=== PATIENT | male | born 1950 | race Caucasian/White ===

== ENCOUNTER 2018-10-17 09:54 | Inpatient (IN) | payer MEDICARE ==
[2018-10-17] MEDS ORDERED: Diltiazem IV* 5 MG/ML 5 ML VIAL (for loading dose/IV Push) (25 MG) IV SLOW PU ONE (10:18)
[2018-10-17] MEDS ORDERED: Furosemide IV* 10 MG/ML 10 ML VIAL (100 MG) IV ONE (10:18)
--- NOTE | 2018-10-17 10:20 | ED ---
Shortness of Breath - HPI Summary HPI Summary: A 67 y/o male presents to [facility] with a chief complaint of SOB since August 2018. He rates his pain as a constant /10. He claims that around 10/02/18 he started to have leg edema with his SOB. He denies a Hx of a-fib, HTN, DM, but also states that he has not seen a PCP in "a long time" since he thought that he was healthy. Being reclined and exertion aggravates his pain. FHx: mother CHF , father of [place] at 53. - History of Current Complaint Chief Complaint: EDRespiratoryDistress Time Seen by Provider: 10/17/18 10:01 Hx Obtained From: Patient Onset/Duration: Sudden Onset, Lasting Weeks, Still Present Current Severity: Mild Dyspnea At: Rest Aggrevating Factors: Other - being reclined, exertion Alleviating Factors: Nothing Associated Signs & Symptoms: Calf Pain/Swelling, Edema - Allergy/Home Medications Allergies/Adverse Reactions: Allergies Allergy/AdvReac Type Severity Reaction Status Date / Time melon Allergy Hives Verified 10/17/18 10:39 peach Allergy Hives Verified 10/17/18 10:39 Home Medications: Home Medications NK [No Home Medications Reported] 10/17/18 [History Confirmed 10/17/18] PMH/Surg Hx/FS Hx/Imm Hx Endocrine/Hematology History: Denies: Hx Diabetes Cardiovascular History: Denies: Hx Atrial Fibrillation, Hx Hypertension EENT History: Denies: Hx Deafness - Family History Known Family History: Positive: Cardiac Disease - mother CHF, father OK at 53 y/ o Negative: Hypertension, Diabetes - Social History Lives: With Family Alcohol Use: Daily Hx Substance Use: No Hx Tobacco Use: Yes Smoking Status (MU): Former Smoker Type: Cigarettes Review of Systems Negative: Fever Positive: Shortness Of Breath Positive: Edema All Other Systems Reviewed And Are Negative: Yes Physical Exam - Summary Physical Exam Summary: Appearance: Well appearing, no pain distress Skin: warm, dry, reflects adequate perfusion Head/face: normal Eyes: EOMI, LAZARUS ENT: mucous membranes moist Neck: supple, non-tender Respiratory: Breath sounds diminished right greater than left. Cardiovascular: Tachycardic, pulses symmetrical Abdomen: lower body swelling into the abdomen, non-tender, soft Bowel Sounds: present Musculoskeletal: 4+ lower extremity edema with swelling into the abdomen, no tenderness, strength/ROM intact Neuro: normal, sensory motor intact, A&Ox3 Triage Information Reviewed: Yes Vital Signs Reviewed: Yes Diagnostics - Laboratory Result Diagrams: 10/17/18 10:30 10/17/18 11:44 Lab Statement: Any lab studies that have been ordered have been reviewed, and results considered in the medical decision making process. - Radiology CXR Radiology Interpretation Completed By: Radiologist Summary of Radiographic Findings: The constellation of findings favors mild pulmonary vascular congestion and associated. moderate RIGHT pleural effusion with basilar atelectasis. A RIGHT basilar pneumonia is not. excluded. Correlate with clinical assessment. ED provider has reviewed this imaging report. - EKG 10:04 Cardiac Rate: Other Rate - Wide complex tachycardia at 138 bpm EKG Rhythm: Sinus Tachycardia ST Segment: Normal, Non-Specific Summary of EKG Findings: wide complex tacycardia at 138 bpm, sinus tacycardia, LBBB vs Ventricular tachycardia, Nonspecific ST Re-Evaluation - Re-Evaluation First Eval Re-Evaluation Time: 10:28 Change: Improved Comment: Patient is improving Second Eval Re-Evaluation Time: 11:26 Change: Improved Comment: Patient is improving. Course/Dx - Course Course Of Treatment: Nurse's notes reviewed. Patient presents with lower extremity edema extending up into the abdomen and worsening shortness of breath over the last 2 months. He has pleural effusion seen on bedside ultrasound and is hyperdynamic. EKG shows wide complex tachycardia that's either sinus tach or could be DVT. He is very hypertense. His heart rate and dyspnea improved significantly with IV diltiazem bolus and drip. Discussed with cardiology. Patient will be admitted to the hospitalist service. - Diagnoses Differential Diagnosis/HQI/PQRI: Positive: CHF, COPD Exacerbation, Pneumothorax , Pulmonary Embolism, Pulmonary Edema, Other - Myocarditis Provider Diagnoses: Acute CHF, Tachycardia, Left bundle branch block - Physician Notifications Discussed Care of Patient With: Vidal Jaeger Time Discussed With Above Provider: 11:30 Instructed by Provider To: Admit As Inpatient - Critical Care Time Critical Care Time: 30-74 min - 30 minutes CCT is EXCLUSIVE of separately billable procedures. Discharge - Sign-Out/Discharge Documenting (check all that apply): Patient Departure - Admit - Discharge Plan Condition: Fair Disposition: ADMITTED TO [facility] Referrals: No Primary Care Phys,NOPCP [Primary Care Provider] - - Billing Disposition and Condition Condition: FAIR Disposition: Admitted to [facility] - Attestation Statements Document Initiated by Usman: Yes Documenting Scribe: Alf Zarate Provider For Whom Usman is Documenting (Include Credential): Philip Osorio MD Scribe Attestation: I, Alf Zarate, scribed for Philip Osorio MD on 10/17/18 at 1307. Scribe Documentation Reviewed: Yes Provider Attestation: The documentation as recorded by the Alf eller accurately reflects the service I personally performed and the decisions made by me, Philip Osorio MD Status of Scribe Document: Viewed Consult Consult: At 11:[address] Simons, cardio, who is now on the case.
[2018-10-17 10:48] LABS: INR 1.22 (0.77-1.02)
[2018-10-17 10:51] LABS: Hematocrit 55 % (42-52); Hemoglobin 18.3 g/dl (14.0-18.0); Mean Corpuscular HGB Conc 33 g/dl (31-36); Mean Corpuscular Hemoglobin 32 pg (27-31); Mean Corpuscular Volume 95 fL (80-94); Red Blood Count 5.78 10^6/ul (4.00-5.40); Red Cell Distribution Width 14 % (10.5-15); White Blood Count 11.8 10^3/ul (3.5-10.8)
[2018-10-17 11:13] LABS: ABS Basophils 0 10^3/ul (0-0.2); ABS Eosinophils 0.1 10^3/ul (0-0.6); ABS Lymphocytes 1.3 10^3/ul (1.0-4.8); ABS Monocytes 0.8 10^3/ul (0-0.8); ABS Neutrophils 9.6 10^3/ul (1.5-7.7); ABS Nucleated RBC 0 10^3/ul; Large Platelets Present; Nucleated Red Blood Cells % 0.1; Platelet Count 306 10^3/ul (150-450)
[2018-10-17 11:14] LABS: ALT 19 U/L (7-52); Albumin 4.1 g/dL (3.2-5.2); Albumin/Globulin Ratio 1.3 (1-3); Alkaline Phosphatase 71 U/L (34-104); BUN/Creatinine Ratio 19.7 (8-20); Blood Urea Nitrogen 24 mg/dL (6-24); CO2 Carbon Dioxide 22 mmol/L (22-32); Calcium 9.2 mg/dL (8.6-10.3); Chloride 103 mmol/L (101-111); EGFR Non-African American 59.2 (>60); Globulin 3.1 g/dL (2-4); Glucose 145 mg/dL (70-100); Sodium 139 mmol/L (135-145); Total Protein 7.2 g/dL (6.4-8.9)
[2018-10-17] MEDS ORDERED: Diltiazem IV VIAL* 125 MG in NS 0.9% 100 ML* 100 ML IVPB ONE ×2 (11:26→18:15)
[2018-10-17] MEDS ORDERED: NS 0.9% 100 ML* 0 ML ONE (11:32)
[2018-10-17 11:36] LABS: Anion Gap 14 mmol/L (2-11)
[2018-10-17 11:49] LABS: TSH (Thyroid Stimulating Horm) 3.36 mcIU/mL (0.34-5.60)
[2018-10-17] MEDS ORDERED: Acetaminophen TAB* 325 MG PO PRN (12:57)
[2018-10-17] MEDS ORDERED: Heparin VIAL(*) 5000 UNITS/ML VIAL (FIVE THOUSAND) SUBCUT SCH (14:00)
[2018-10-17] MEDS: Nitroglycerin 2% OINT* 1 GM PAK TOPICAL SCH (14:19)
[2018-10-17] MEDS ORDERED: Heparin VIAL(*) 5000 UNITS/ML VIAL (FIVE THOUSAND) IV SCH (18:00)
[2018-10-17] MEDS ORDERED: Nitro Patch/OINT Remove TOPICAL SCH (18:00)
[2018-10-17] MEDS ORDERED: Heparin DRIP 25,000 UNITS(*) 25,000 UNITS/500 ML BAG IV SCH (18:00)
[2018-10-17 18:16] LABS: Indirect Bilirubin 1.2 mg/dL (0.3-1.0); Total Bilirubin 1.7 mg/dL (0.2-1.0)
[2018-10-17] MEDS: Furosemide IV* 10 MG/ML VIAL (40 MG) IV SCH (19:48)
[2018-10-17] MEDS: Metoprolol Tartrate TAB* 25 MG PO SCH (20:34)
--- NOTE | 2018-10-17 21:52 | HP ---
HISTORY AND PHYSICAL: DATE OF ADMISSION: 10/17/18 PROVIDER: Lili Jay NP PRIMARY CARE PROVIDER: None. ATTENDING PHYSICIAN WHILE IN THE HOSPITAL: Dr. Vidal Jaeger * (dictated by Lili Jay NP). CHIEF COMPLAINT: Shortness of breath. HISTORY OF PRESENT ILLNESS: Mr. Molina is a 67-year-old male with no prior medical history other than approximately a 10-year history of alcohol abuse, where he reports that he has drank approximately a 6-pack a day 5 to 6 days a week for approximately 10 years, quitting in July of 2018, does report he has not had any alcohol since. The patient reports that around he developed what he thought was a chest cold with a dry nonproductive cough. He states he never brought up any secretions, but had the cough and continued to have the cough. He does report in July he was able to stack 4 cords of wood without any difficulty, never developed any chest pain or shortness of breath. Since the development of the cough, he has become more progressively short of breath. He states shortly before he started noticing increased swelling to bilateral lower extremities that progressively has gotten worse and his shortness of breath became progressively worse causing nocturnal dyspnea and orthopnea. The patient reports that he was able to sleep by on his sides on 1 pillow, but since has been sitting upright at night to sleep due to his increased shortness of breath. The patient reports that over the past 2 days the shortness of breath has become significantly worse, so he presented to the emergency room for further evaluation. The patient also reports that the bilateral lower extremity edema has progressively become worse and now he feels bloated and swelling up to his abdomen. He has had decreased appetite due to the swelling and early satiety. While in the emergency room, the patient had routine lab work drawn. He was found to have lactic acidosis with a lactic acid level of 3.5. He had a troponin, initial troponin was 0.05 and a BNP of 1037. WBCs were 11.8, H and H were 18.3 and 55. The chest x-ray was consistent with pulmonary vascular congestion with a right pleural effusion. Given these symptoms, we were asked to see and evaluate the patient for admission. PAST MEDICAL HISTORY: None. PAST SURGICAL HISTORY: None. HOME MEDICATIONS: None. ALLERGIES: MELON and PEACH. FAMILY HISTORY: Father at the age of 53 from an ND. Mother with CHF in her 70s. No diabetes. Mother had a history of uterine cancer. SOCIAL HISTORY: The patient reports that he quit smoking approximately 35 years ago. He currently does not use alcohol, but does report a remote history of approximately 10 years of alcohol abuse where he drank 6-pack a day 5 to 6 days a week for approximately 10 years, quitting in July of 2018. He denies any illicit drug use. He is retired. He is . He lives with his . Surrogate decision maker in the event he is unable to make his own decisions is his . He is a full code. REVIEW OF SYSTEMS: He denies any fever. He does report decreased appetite x3 days. He denies any chest pain with exertion. He does report edema to bilateral lower extremities from his waist down to his feet progressively worsening since before [place]. He does report cough. He denies any hemoptysis. He does report that he feels short of breath all the time and that he has had increased weakness and fatigue. He denies any nausea, vomiting , or diarrhea. Denies any abdominal pain, hematuria or dysuria. Denies any focal weakness or sensory loss. Denies any visual complaints. Denies any dysphagia, arthralgias, myalgias, rashes, lesions, psychosis, or anxiety. PHYSICAL EXAMINATION GENERAL: At this time, Mr. Molina is a 67-year-old male. He appears mildly short of breath, resting on the stretcher in the emergency room. VITAL SIGNS: Blood pressure 143/105; heart rate is 88, irregular on the monitor ; respirations are 20 to 22; O2 saturation 95% on room air; temperature was 96.9 to 98.3. HEENT: Head is atraumatic and normocephalic. Eyes: EOMs are intact. Sclerae are anicteric and not pale. Oral mucosa appears to be moist. NECK: Supple. He does have positive JVD. LUNGS: Lungs are clear, significantly diminished on the right side. No wheezes , rales, or rhonchi. CARDIAC: S1, S2. Irregular rate and rhythm. ABDOMEN: Rounded, firm. Bowel sounds are present x4. EXTREMITIES: Pedal pules are +2 bilaterally. He has +2 to +3 pitting edema to his lower extremities with +1 pitting edema noted to his thighs. Scrotum is swollen and swelling noted to his lower abdomen. He is able to move all extremities with 5/5 strength. NEUROLOGIC: He is awake, alert, oriented x3. Handgrips are equal. Tongue is midline. Speech is clear. No gross focal deficits. SKIN: Intact. DIAGNOSTIC STUDIES AND LABORATORY DATA: WBCs are 11.8, RBCs 5.79, hemoglobin 18.3, hematocrit 55, platelet count is 306. INR was 1.22. Sodium 139, potassium 4.4, chloride 103, carbon dioxide was 22, anion gap 14, BUN was 24, creatinine 1.22, glucose was 145, lactic acid 3.5, calcium 9.2, magnesium 2.0. T-bili was 1.70, GGT 62, ASTs were 24, ALTs were 19, alkaline phosphatase was 71. Troponin was 0.05 and repeat was 0.05. BNP was 1037. TSH was 3.36. He had a chest x-ray, radiologist's impression: Constellation findings are mild pulmonary vascular congestion associated with moderate right pleural effusion and bibasilar atelectasis, a right basilar pneumonia is not excluded, correlate clinically. He had an electrocardiogram, which showed initially tachycardia at a rate of 138. His rhythm was slowed down. He did present with atrial fibrillation when his rate was slowed to the 80s. ASSESSMENT AND PLAN: Mr. Molina is a 67-year-old male with no significant past medical history other than a remote history of daily alcohol use of 6 beers daily 5 to 6 days a week x10 years, which he quit drinking on 08/08/18 and has not had any alcohol since, who presented to the emergency room with progressively worsening shortness of breath and swelling to the lower extremities and lower abdomen. He will be admitted inpatient for: 1. Acute diastolic congestive heart failure. At this point, we will start Lasix 40 mg IV q.[address] him on telemetry. We will monitor him on telemetry. I will continue to trend his troponins as they are mildly elevated. He is currently on a Cardizem drip. We will continue the Cardizem drip for rate control. I will get a transthoracic echocardiogram. I have also consulted Cardiology and spoke to Dr. Campos in regards to this patient. 2. Tachycardia. The patient's initial rhythm was thought to be sinus tachycardia in the 130s. The rate was slowed down. He was found to be having atrial fibrillation. Due to the atrial fibrillation, he will be started on anticoagulation. I will start him on a heparin drip per protocol for new onset atrial fibrillation. He will also to be continued on the Cardizem drip and titrate if heart rate allows. He will be started on metoprolol 25 mg twice daily as per Cardiology's recommendations. He will also be scheduled for a FEILCE and cardioversion possibly tomorrow or Monday. If unable to do a FELICE tomorrow, the patient should continue to have a transthoracic echocardiogram to evaluate ejection fraction. 3. Lactic acidosis. His lactic acid is elevated on admission without any clear source of infection. We will repeat the lactic acid. 4. Elevated troponin. I suspect that the patient has an elevated troponin level related to demand ischemia from the tachycardia and congestive heart failure. We will continue to trend his troponins. He will be seen and evaluated by Cardiology. 5. FEN. He can have a heart-healthy, no caffeine diet. He will be n.p.o. after midnight for procedure in the a.m. 6. DVT prophylaxis. He will be placed on heparin drip. 7. Code status: He is a full code. TIME SPENT: Time spent on this admission was 60 minutes, greater than half of that time was spent with the patient obtaining my history and physical, the other half of the time was spent going over the plan of care and implementing my plan of care. I discussed this with my attending, Dr. Jaeger, and he is in agreement with my plan. LILI JAY, ASSISTANT SOFTBALL COACH [id number]/CPS #: [id number] NICHOLAS
[2018-10-17] MEDS ORDERED: NS 0.9% 100 ML* 100 ML ONE (21:56)
[2018-10-17] MEDS ORDERED: Diltiazem IV VIAL* 125 MG in NS 0.9% 100 ML* 100 ML IV SCH (23:00)
--- NOTE | 2018-10-18 02:29 | CONS ---
CC: Hospitalist Service... CARDIOLOGY CONSULTATION: DATE OF CONSULT: 10/17/18 REASON FOR CONSULTATION: Congestive heart failure. CHIEF COMPLAINT: Shortness of breath as well as abdominal and leg swelling. HISTORY OF PRESENT ILLNESS: Mr. Molina is a 67-year-old gentleman who has been previously healthy and has not followed with doctors in decades. The patient states he used to drink quite regularly. On 2017, he just did not have the taste for a beer when a friend offered him one and he has not had one since. The patient developed viral cold-like symptoms after Thanksgiving at end of August. He noted by the end of September that he was starting to get a swollen abdomen, and following this, swollen legs and exertional dyspnea. The patient presented to the emergency department for the above symptoms and was found to be in regular tachycardia with a left bundle-branch block. The patient denies any awareness of palpitations or racing of the heart. He has had orthopnea. PAST MEDICAL HISTORY: None. OUTPATIENT MEDICATIONS: None. ALLERGIES: Foods (melon and peach). No known medication allergies. SOCIAL HISTORY: The patient did in the past drink quite a few beers a day (6 pack),but stopped on 2017. He is a retired hardware engineering manager, . No active smoking and no history of recreational drug use. FAMILY HISTORY: Significant that his father of a heart attack at age 53, and his mother developed congestive heart failure. REVIEW OF SYSTEMS: See history of present illness. The last taste for alcohol was in July, viral symptoms in August, and progressive abdominal girth, lower extremity edema, and shortness of breath in September progressing to now. He denies chest pain of any sort. He does admit to orthopnea. He is vague about decline in exercise. He states in July he was very physically active, and over the holidays, he had a lot of traveling and family obligations. He did not really notice a decline. No recent fevers, chills, sweats, change in bowel or bladder habits. PHYSICAL EXAMINATION: On exam, the patient is 5 feet 11 inches, weighs 225 pounds with a BMI of 31. Vitals: On arrival to the emergency department, blood pressure 179/135 with a pulse of 140. Current vitals (on diltiazem drip and following diuresis), blood pressure 140/86, pulse 106, oxygen 99%, respiratory rate 18. General Appearance: Somewhat older gentleman, lying about 60 degrees with marked edema of the legs. Psychologically, pleasant and cooperative. Neurologically, awake, alert, oriented to person, place, and time. Cranial nerves II through XII intact. Grossly normal sensory and motor function based on bed exam. Skin: Warm, dry, without appreciable cyanosis of the lips or nail beds. HEENT: Mucous membranes moderately moist. Neck: Without appreciable increase in JVP. Strong carotid pulses. Free of bruits. Breath sounds were diminished in the bases. Coronary: S1, S2. Regular. Tachycardic without murmurs. Abdomen: Rotund. Did not appreciate a fluid level. Lower extremities show 3 to 4+ pitting edema up to the upper thigh extending to the abdomen. DIAGNOSTIC STUDIES AND LABORATORY DATA: Studies: A 12-lead ECG in the emergency room at 10 a.m. showed regular tachycardia, 138 beats a minute with a left bundle- branch block. Repeat EKG on rate lowering agents at 1437 confirms atrial flutter with varying rates, left bundle-branch block. Labs: White count 11.8, hemoglobin 18.3, hematocrit 55, platelets 306. INR 1.22. PTT 30.6. Sodium 139, potassium 4.4, chloride 103, bicarb 22, BUN 24, creatinine 1.22, glucose 145. Lactic acid 3.5, bili 1.7. AST 24, ALT 19, alk phos 71. Troponin #1, 0.05; troponin #2, 0.05; troponin #3, 0.07. BNP 1037. TSH 3.36. Chest x-ray shows mild pulmonary vascular congestion and right pleural effusion , cannot rule out bilateral pneumonias in the bases. Liver ultrasound showed small gallbladder, complex hepatic cyst, small amount of ascites, and bilateral pleural effusions. ASSESSMENT/PLAN: In summary, Mr. Molina is a 67-year-old gentleman presenting with atrial flutter of uncertain duration, probably for weeks with congestive heart failure and fluid overload in the abdomen, lower extremities, and lungs including pleural effusions. The atrial flutter is very likely the etiology of his fluid overload. This combined with a left bundle-branch block could have lead to depressed ejection fraction, but we do not yet have an echo to confirm this. Today, I have recommended initiation of heparin drip to decrease the risk of stroke. I agree with diuresis, and once we feel he is diuresed enough, he needs to undergo transesophageal echo guided cardioversion. Once we determine what his ejection fraction is, he may need an medications added for cardiomyopathy which would include beta-napoleon, ACEI/ARB, and diuretics. In the future may benefit from spironolactone in addition to loop diuretics. The patient had lots of good questions about prognosis and what to expect. I made him aware that long-term he could be a good candidate for flutter ablation but that acutely we needed to protect him from stroke, plan on controlling the rate as part of the mechanism to improve him clinically. Ultimately, we would try to cardiovert him once we felt it was safe and that he would likely need an antiarrhythmic added, he is understanding. Other considerations would be his elevated hemoglobin, this may be related to his drinking history. For his family history of early atherosclerotic heart disease and borderline troponins, at some point will need a stress test but if he has severe cardiomyopathy, he may warrant more invasive evaluation, await testing ordered before determining how to pursue ischemic workup. [id number]/[facility] #: [id number] NICHOLAS
[2018-10-18] MEDS: Nitroglycerin 2% OINT* 1 GM PAK TOPICAL SCH (05:40)
[2018-10-18] MEDS ORDERED: Nitroglycerin 2% OINT* 1 GM PAK TOPICAL SCH (06:00)
[2018-10-18 06:56] LABS: ABS Basophils 0 10^3/ul (0-0.2); ABS Eosinophils 0.2 10^3/ul (0-0.6); ABS Lymphocytes 1.2 10^3/ul (1.0-4.8); ABS Monocytes 0.8 10^3/ul (0-0.8); ABS Neutrophils 6.4 10^3/ul (1.5-7.7); ABS Nucleated RBC 0 10^3/ul; Eosinophil % 1.8 %; Hematocrit 49 % (42-52); Hemoglobin 16.2 g/dl (14.0-18.0); Mean Corpuscular HGB Conc 33 g/dl (31-36); Mean Corpuscular Hemoglobin 31 pg (27-31); Mean Corpuscular Volume 95 fL (80-94); Mean Platelet Volume 10.8 fL (7.4-10.4); Nucleated Red Blood Cells % 0.2; Platelet Count 197 10^3/ul (150-450); Red Blood Count 5.23 10^6/ul (4.00-5.40); Red Cell Distribution Width 14 % (10.5-15); White Blood Count 8.5 10^3/ul (3.5-10.8)
[2018-10-18 07:16] LABS: BUN/Creatinine Ratio 19.6 (8-20); Calcium 9.1 mg/dL (8.6-10.3); EGFR Non-African American 72.8 (>60); HDL Cholesterol 30.3 mg/dL; Potassium 3.5 mmol/L (3.5-5.0)
[2018-10-18] MEDS: Furosemide IV* 10 MG/ML VIAL (40 MG) IV SCH ×2 (08:13→21:05)
[2018-10-18] MEDS: Metoprolol Tartrate TAB* 25 MG PO SCH (08:13)
[2018-10-18] MEDS ORDERED: Potassium Chlor TAB* 10 MEQ TAB.ER PO ONE (08:32)
[2018-10-18] MEDS: Apixaban* 5 MG TAB PO SCH ×2 (09:09→21:06)
[2018-10-18] MEDS ORDERED: Midazolam* 1 MG/ML 10 ML VIAL (10 MG) ONE (09:41)
[2018-10-18] MEDS ORDERED: fentaNYL* 50 MCG/ML 2 ML VIAL (100 MCG VIAL) ONE (09:41)
[2018-10-18] MEDS ORDERED: Flumazenil* 0.1 MG/ML 5 ML MDV ONE (09:41)
[2018-10-18] MEDS ORDERED: Naloxone* 0.4 MG/ML 1 ML VIAL ONE (09:41)
[2018-10-18] MEDS ORDERED: Lidocaine 2% VISCOUS* 15 ML UDC ONE (09:41)
--- NOTE | 2018-10-18 11:02 | PN ---
Subjective Date of Service: 10/18/18 Interval History: f/u ChF, atrial flutter remains with dyspnea and marked volume overload Medications Active Medications: Acetaminophen (Tylenol Tab*) 650 mg PO Q4H PRN PRN Reason: FEVER/PAIN Apixaban (Eliquis*) 5 mg PO BID [facility] Last Admin: 10/18/18 09:09 Dose: 5 mg Carvedilol (Coreg Tab*) 6.25 mg PO BID [facility] Furosemide (Lasix Iv*) 40 mg IV Q12H [facility] Last Admin: 10/18/18 08:13 Dose: 40 mg Objective Vital Signs: Temp Pulse Resp BP Pulse Ox 97.8 F 92 17 150/86 97 10/18/18 07:28 10/18/18 07:28 10/18/18 08:00 10/18/18 07:51 10/18/18 07:28 Oxygen Devices in Use Now: Nasal Cannula Appearance: nad, pleasant Neck: Trachea Midline, - - + jvd Respiratory: Symmetrical Chest Expansion and Respiratory Effort, - - decreased BS right base Cardiovascular: - - RRR, no significant murmur Abdominal: - - distended, soft Extremities: - - 3+ edema Neurological: Alert and Oriented x 3 Laboratory Results: 10/18/18 06:45 10/18/18 06:45 INR (Anticoag Therapy) 1.22 (0.77-1.02) H 10/17/18 10:30 APTT 146.8 seconds (26.0-36.3) H* 10/18/18 02:15 Total Bilirubin 1.70 mg/dL (0.2-1.0) H 10/17/18 16:19 Direct Bilirubin 0.50 mg/dL (0.03-0.18) H 10/17/18 16:19 Indirect Bilirubin 1.2 mg/dL (0.3-1.0) H 10/17/18 16:19 AST 24 U/L (13-39) 10/17/18 11:44 ALT 19 U/L (7-52) 10/17/18 10:30 Alkaline Phosphatase 71 U/L (34-104) 10/17/18 10:30 B-Natriuretic Peptide 1037 pg/mL (<=100) H 10/17/18 10:30 Total Protein 7.2 g/dL (6.4-8.9) 10/17/18 10:30 Albumin 4.1 g/dL (3.2-5.2) 10/17/18 10:30 Globulin 3.1 g/dL (2-4) 10/17/18 10:30 Albumin/Globulin Ratio 1.3 (1-3) 10/17/18 10:30 Triglycerides 64 mg/dL 10/18/18 06:45 Cholesterol 178 mg/dL 10/18/18 06:45 LDL Cholesterol 135 mg/dL 10/18/18 06:45 HDL Cholesterol 30.3 mg/dL 10/18/18 06:45 TSH 3.36 mcIU/mL (0.34-5.60) 10/17/18 10:30 10/17/18 10/17/18 10/17/18 10:30 12:48 16:19 Troponin I 0.05 H* 0.05 H* 0.07 H* 10/18/18 06:45 Troponin I 0.08 H* [id number] 6.4 Diagnostic Imaging: FELICE 10/18/2018 LVEF 30% No LA/COURTNEY thrombus Moderate TR Mild aortic plaque Assessment/Plan Mr. Molina is a 67 year old man admitted with acute systolic HF LVEF 30% in the setting of a LBBB and 2:1 rapid atrial flutter of uncertain duration. s/p FELICE/cardioversion 10/27/2018 remains markedly volume overloaded - Continue IV diuresis - Stop metoprolol and start coreg 6.25 mg po bid (ordered) - Start enalapril 2.5 mg po bid (ordered) - Heparin gtt stopped and eliquis 2.5 mg po bid (ordered) - Check daily CMP and Mg (ordered), suspect LFT's will normalize with diuresis and mosque of sinus rhythm. Replace lytes as needed (40 meq K given this AM, will order another 20 meq for later this evening) - Continue telemetry monitoring - Will follow, further recommendations pending clinical course Thank you for allowing me to participate in the cardiovascular care of this patient. Please do not hesitate to contact me with questions or concerns.
--- NOTE | 2018-10-18 14:05 | PN ---
Subjective Date of Service: 10/18/18 Interval History: Pt is seen after cardioversion, feels much better. Leg edema is somewhat improved, but breathing is back to baseline Objective Active Medications: Acetaminophen (Tylenol Tab*) 650 mg PO Q4H PRN PRN Reason: FEVER/PAIN Apixaban (Eliquis*) 5 mg PO BID [facility] Last Admin: 10/18/18 09:09 Dose: 5 mg Carvedilol (Coreg Tab*) 6.25 mg PO BID [facility] Enalapril Maleate (Vasotec Tab*) 2.5 mg PO BID [facility] Furosemide (Lasix Iv*) 40 mg IV Q12H [facility] Last Admin: 10/18/18 08:13 Dose: 40 mg Potassium Chloride (Klor Con Er Tab*) 20 meq PO ONCE ONE Stop: 10/18/18 21:01 Vital Signs - 8 hr 10/18/18 10/18/18 10/18/18 06:51 07:28 07:51 Temperature 97.8 F Pulse Rate 92 Respiratory 16 Rate Blood Pressure 149/98 150/86 (mmHg) O2 Sat by Pulse 97 Oximetry 10/18/18 10/18/18 10/18/18 08:00 08:51 09:22 Temperature Pulse Rate 101 Respiratory 17 20 Rate Blood Pressure 154/104 146/111 (mmHg) O2 Sat by Pulse 94 Oximetry 10/18/18 10/18/18 10/18/18 09:27 09:32 09:37 Temperature Pulse Rate 93 92 94 Respiratory 20 19 21 Rate Blood Pressure 152/127 167/123 153/120 (mmHg) O2 Sat by Pulse 96 97 96 Oximetry 10/18/18 10/18/18 10/18/18 10:00 10:09 10:16 Temperature Pulse Rate 91 90 93 Respiratory 21 Rate Blood Pressure 168/119 147/120 (mmHg) O2 Sat by Pulse 94 99 99 Oximetry 10/18/18 10/18/18 10/18/18 10:19 10:23 10:30 Temperature Pulse Rate 95 95 70 Respiratory Rate Blood Pressure 129/103 140/90 129/67 (mmHg) O2 Sat by Pulse 99 97 95 Oximetry 10/18/18 10/18/18 10/18/18 10:34 10:38 10:43 Temperature Pulse Rate 65 67 68 Respiratory Rate Blood Pressure 97/69 109/71 119/69 (mmHg) O2 Sat by Pulse 94 95 93 Oximetry 10/18/18 10/18/18 10/18/18 10:53 10:58 11:00 Temperature Pulse Rate 61 68 66 Respiratory Rate Blood Pressure 136/95 110/94 (mmHg) O2 Sat by Pulse 91 94 93 Oximetry 10/18/18 10/18/18 10/18/18 11:03 11:08 11:13 Temperature Pulse Rate 51 66 62 Respiratory Rate Blood Pressure 129/87 123/95 122/78 (mmHg) O2 Sat by Pulse 96 97 97 Oximetry 10/18/18 10/18/18 10/18/18 11:18 11:23 11:52 Temperature Pulse Rate 59 65 Respiratory Rate Blood Pressure 118/84 129/91 142/98 (mmHg) O2 Sat by Pulse 97 97 Oximetry 10/18/18 10/18/18 10/18/18 11:56 12:05 12:51 Temperature 97.7 F Pulse Rate 78 Respiratory 15 Rate Blood Pressure 133/95 136/98 137/106 (mmHg) O2 Sat by Pulse 99 Oximetry 10/18/18 13:27 Temperature 98.1 F Pulse Rate 94 Respiratory 16 Rate Blood Pressure (mmHg) O2 Sat by Pulse 97 Oximetry Oxygen Devices in Use Now: None Appearance: 67 yo M in nAD, aAOx3 Eyes: No Scleral Icterus, PERRLA Ears/Nose/Mouth/Throat: NL Teeth, Lips, Gums, Mucous Membranes Moist Neck: NL Appearance and Movements; NL JVP, Trachea Midline Respiratory: Symmetrical Chest Expansion and Respiratory Effort, Clear to Auscultation Cardiovascular: NL Sounds; No Murmurs; No JVD, RRR Abdominal: NL Sounds; No Tenderness; No Distention Lymphatic: No Cervical Adenopathy Extremities: No Clubbing, Cyanosis, - - edema b/l LE's +1 pitting up to the thighs b/l Skin: No Rash or Ulcers, No Nodules or Sclerosis Neurological: Alert and Oriented x 3, NL Muscle Strength and Tone Result Diagrams: 10/18/18 06:45 10/18/18 06:45 Assess/Plan/Problems-Billing Assessment: 67 yo m with no significant PMhx presents with A. flutter with RVR and CHF. - Patient Problems (1) Atrial flutter Comment: s/p FELICE cardioversion by Dr. Harris. Now on coreg, lisinopril, eliquis (2) Acute clinical systolic heart failure Comment: with EF 30% on FELICE, susupect it will improve once pt is back in nSR cont IV Lasix. Pt is unsure of his baseline weight, but believes that he gained approx 30 lbs in 3 weeks. (3) Elevated bilirubin Comment: with predominant indirect bili. ? Gilbert syndrome (4) DVT prophylaxis Comment: eliquis Status and Disposition: inpatient
[2018-10-18] MEDS ORDERED: Potassium Chlor TAB* 20 MEQ TAB.ER PO ONE (21:00)
[2018-10-18] MEDS ORDERED: Carvedilol TAB* 6.25 MG PO SCH (21:00)
[2018-10-18] MEDS: Enalapril TAB* 5 MG PO SCH (21:06)
[2018-10-19 07:15] LABS: Albumin 3.5 g/dL (3.2-5.2); Albumin/Globulin Ratio 1.4 (1-3); BUN/Creatinine Ratio 22.6 (8-20); Calcium 9.2 mg/dL (8.6-10.3); EGFR Non-African American 69.7 (>60); Globulin 2.5 g/dL (2-4); Magnesium 1.9 mg/dL (1.9-2.7); Potassium 3.8 mmol/L (3.5-5.0); Total Bilirubin 1.2 mg/dL (0.2-1.0)
[2018-10-19] MEDS ORDERED: Potassium Chlor TAB* 20 MEQ TAB.ER PO ONE (07:56)
--- NOTE | 2018-10-19 08:06 | PN ---
Subjective Date of Service: 10/19/18 Interval History: f/u ChF, atrial flutter Still feels congested, he is unsure if early virus vs. chf Markedly volume overloaded EKG today shows LVH 4 beat PVC burst on telemetry No sustained arrhythmias or significant pauses Medications Active Medications: Acetaminophen (Tylenol Tab*) 650 mg PO Q4H PRN PRN Reason: FEVER/PAIN Apixaban (Eliquis*) 5 mg PO BID [facility] Last Admin: 10/18/18 21:06 Dose: 5 mg Atorvastatin Calcium (Lipitor*) 40 mg PO 2100 [facility] Carvedilol (Coreg Tab*) 12.5 mg PO BID [facility] Enalapril Maleate (Vasotec Tab*) 2.5 mg PO BID [facility] Last Admin: 10/18/18 21:06 Dose: 2.5 mg Furosemide (Lasix Iv*) 40 mg IV Q12H [facility] Last Admin: 10/18/18 21:05 Dose: 40 mg Potassium Chloride (Klor Con Er Tab*) 40 meq PO ONCE ONE Stop: 10/19/18 07:57 Objective Vital Signs: Temp Pulse Resp BP Pulse Ox 97.4 F 72 16 133/93 99 10/19/18 03:39 10/19/18 03:39 10/19/18 03:39 10/19/18 05:51 10/19/18 03:39 Oxygen Devices in Use Now: None Appearance: nad, pleasant Neck: Trachea Midline, - - + jvd Respiratory: Symmetrical Chest Expansion and Respiratory Effort, - - bibasilar rales Cardiovascular: - - RRR, no significant murmur Abdominal: - - distended, soft Extremities: - - 3+ edema Neurological: Alert and Oriented x 3 Laboratory Results: 10/18/18 06:45 10/19/18 06:32 INR (Anticoag Therapy) 1.22 (0.77-1.02) H 10/17/18 10:30 APTT 146.8 seconds (26.0-36.3) H* 10/18/18 02:15 Total Bilirubin 1.20 mg/dL (0.2-1.0) H 10/19/18 06:32 Direct Bilirubin 0.50 mg/dL (0.03-0.18) H 10/17/18 16:19 Indirect Bilirubin 1.2 mg/dL (0.3-1.0) H 10/17/18 16:19 AST 22 U/L (13-39) 10/19/18 06:32 ALT 19 U/L (7-52) 10/19/18 06:32 Alkaline Phosphatase 59 U/L (34-104) 10/19/18 06:32 B-Natriuretic Peptide 1037 pg/mL (<=100) H 10/17/18 10:30 Total Protein 6.0 g/dL (6.4-8.9) L 10/19/18 06:32 Albumin 3.5 g/dL (3.2-5.2) 10/19/18 06:32 Globulin 2.5 g/dL (2-4) 10/19/18 06:32 Albumin/Globulin Ratio 1.4 (1-3) 10/19/18 06:32 Triglycerides 64 mg/dL 10/18/18 06:45 Cholesterol 178 mg/dL 10/18/18 06:45 LDL Cholesterol 135 mg/dL 10/18/18 06:45 HDL Cholesterol 30.3 mg/dL 10/18/18 06:45 TSH 3.36 mcIU/mL (0.34-5.60) 10/17/18 10:30 mg 1.9 hgba1c 6.4 10/17/18 10/17/18 10/17/18 10:30 12:48 16:19 Troponin I 0.05 H* 0.05 H* 0.07 H* 10/18/18 06:45 Troponin I 0.08 H* Diagnostic Imaging: FELICE 10/18/2018 LVEF 30% No LA/COURTNEY thrombus Moderate TR Mild aortic plaque'' EKG Data: EKG 10/19/2018: NSR, LVH with repolarization abnormalities Admission EKG: Rapid atrial flutter EKG 10/18/2018: NSR, LBBB Assessment/Plan Mr. Molina is a 67 year old man admitted with acute systolic HF LVEF 30% in the setting of a LBBB (intermittent) and 2:1 rapid atrial flutter of uncertain duration. s/p FELICE/cardioversion 10/18/2018 remains markedly volume overloaded. Remains hypertensive, diastolic currently and markedly volume overloaded. Has impaired fasting glucose by hgba1c - Continue IV diuresis, patient not stable for discharge - Given extra potassium 40 meq K x 1 now (ordered) - Increase coreg from 6.25 mg po bid to 12.5 mg po bid (ordered) - Continue enalapril 2.5 mg po bid - Continue eliquis 5 mg po bid - Start lipitor 40 mg po daily (ordered) - Continue telemetry monitoring - Continue daily CMP and Mg - If patient does not have a viral infection, would given an influenza vaccine - Further recommendations pending clinical course Thank you for allowing me to participate in the cardiovascular care of this patient. Please do not hesitate to contact me with questions or concerns.
[2018-10-19] MEDS: Enalapril TAB* 5 MG PO SCH ×2 (08:45→21:06)
[2018-10-19] MEDS: Apixaban* 5 MG TAB PO SCH ×2 (08:47→21:04)
[2018-10-19] MEDS: Carvedilol TAB* 6.25 MG PO SCH ×2 (08:48→21:04)
[2018-10-19] MEDS: Furosemide IV* 10 MG/ML VIAL (40 MG) IV SCH ×2 (08:49→21:03)
--- NOTE | 2018-10-19 15:39 | PN ---
Subjective Date of Service: 10/19/18 Interval History: Pt feels well. Legs still swollen. NSR with PVC's o telem. Denies CP/SOB Objective Active Medications: Acetaminophen (Tylenol Tab*) 650 mg PO Q4H PRN PRN Reason: FEVER/PAIN Apixaban (Eliquis*) 5 mg PO BID [facility] Last Admin: 10/19/18 08:47 Dose: 5 mg Atorvastatin Calcium (Lipitor*) 40 mg PO 2100 [facility] Carvedilol (Coreg Tab*) 12.5 mg PO BID [facility] Last Admin: 10/19/18 08:48 Dose: 12.5 mg Enalapril Maleate (Vasotec Tab*) 2.5 mg PO BID [facility] Last Admin: 10/19/18 08:45 Dose: 2.5 mg Furosemide (Lasix Iv*) 40 mg IV Q12H [facility] Last Admin: 10/19/18 08:49 Dose: 40 mg Vital Signs - 8 hr 10/19/18 10/19/18 10/19/18 07:52 08:00 09:52 Respiratory 17 Rate Blood Pressure 141/108 105/66 (mmHg) 10/19/18 11:52 Respiratory Rate Blood Pressure 129/85 (mmHg) Oxygen Devices in Use Now: None Appearance: 67 yo M in nAD, aAOx3 Eyes: No Scleral Icterus, PERRLA Ears/Nose/Mouth/Throat: NL Teeth, Lips, Gums, Mucous Membranes Moist Neck: NL Appearance and Movements; NL JVP, Trachea Midline Respiratory: Symmetrical Chest Expansion and Respiratory Effort, Clear to Auscultation Cardiovascular: NL Sounds; No Murmurs; No JVD, RRR Abdominal: NL Sounds; No Tenderness; No Distention, No Hepatosplenomegaly Lymphatic: No Cervical Adenopathy Extremities: No Clubbing, Cyanosis, - - +2 entire b/l LE's edema Skin: No Nodules or Sclerosis Neurological: Alert and Oriented x 3, NL Muscle Strength and Tone Result Diagrams: 10/18/18 06:45 10/19/18 06:32 Assess/Plan/Problems-Billing Assessment: 67 yo m with no significant PMhx presents with A. flutter with RVR and CHF. - Patient Problems (1) Atrial flutter Comment: s/p FELICE cardioversion by Dr. Harris on 10/18/18 Now on coreg, lisinopril, eliquis (2) Acute clinical systolic heart failure Comment: with EF 30% on FELICE, suspect it will improve once pt is back in NSR cont IV Lasix. Pt is unsure of his baseline weight, but believes that he gained approx 30 lbs in 3 weeks. wt still at 220, but leg edema slightly improved and I/O's are neg 900 ml (3) Elevated bilirubin Comment: with predominant indirect bili. ? Gilbert syndrome Improving (4) DVT prophylaxis Comment: eliquis Status and Disposition: inpatient
[2018-10-19] MEDS: Atorvastatin* 40 MG TAB PO SCH (21:04)
[2018-10-20 06:17] LABS: Albumin 3.4 g/dL (3.2-5.2); Albumin/Globulin Ratio 1.7 (1-3); BUN/Creatinine Ratio 28.4 (8-20); Calcium 8.9 mg/dL (8.6-10.3); EGFR Non-African American 86.4 (>60); Magnesium 1.9 mg/dL (1.9-2.7); Potassium 3.8 mmol/L (3.5-5.0); Total Bilirubin 1.1 mg/dL (0.2-1.0); Total Protein 5.4 g/dL (6.4-8.9)
[2018-10-20] MEDS ORDERED: Potassium Chlor TAB* 20 MEQ TAB.ER PO ONE (08:18)
[2018-10-20] MEDS ORDERED: Magnesium Sulfate 1 GM IV* 1 GM/100 ML BAG IV ONE (08:18)
[2018-10-20] MEDS: Enalapril TAB* 5 MG PO SCH ×2 (09:34→21:27)
[2018-10-20] MEDS: Apixaban* 5 MG TAB PO SCH ×2 (09:34→21:27)
[2018-10-20] MEDS: Carvedilol TAB* 6.25 MG PO SCH ×2 (09:35→21:28)
[2018-10-20] MEDS: Furosemide IV* 10 MG/ML VIAL (40 MG) IV SCH (09:36)
[2018-10-20] MEDS ORDERED: Furosemide IV* 10 MG/ML VIAL (40 MG) IV SCH (09:51)
[2018-10-20] MEDS ORDERED: Magnesium Oxide TAB* 400 MG ONE (11:10)
--- NOTE | 2018-10-20 12:48 | PN ---
Subjective Date of Service: 10/20/18 Interval History: Pt has frequent PVC's on telem and had 6 beats of V. tach this aM-asymptomatic Feels that legs have less edema, denies CP/SOB Objective Active Medications: Acetaminophen (Tylenol Tab*) 650 mg PO Q4H PRN PRN Reason: FEVER/PAIN Apixaban (Eliquis*) 5 mg PO BID [facility] Last Admin: 10/20/18 09:34 Dose: 5 mg Atorvastatin Calcium (Lipitor*) 40 mg PO 2100 [facility] Last Admin: 10/19/18 21:04 Dose: 40 mg Carvedilol (Coreg Tab*) 12.5 mg PO BID [facility] Last Admin: 10/20/18 09:35 Dose: 12.5 mg Enalapril Maleate (Vasotec Tab*) 2.5 mg PO BID [facility] Last Admin: 10/20/18 09:34 Dose: 2.5 mg Furosemide (Lasix Iv*) 40 mg IV Q12H [facility] Last Admin: 10/20/18 09:36 Dose: 40 mg Vital Signs - 8 hr 10/20/18 10/20/18 03:19 07:51 Temperature 97.2 F 97.2 F Pulse Rate 56 62 Respiratory 16 16 Rate Blood Pressure 123/78 126/82 (mmHg) O2 Sat by Pulse 97 98 Oximetry Oxygen Devices in Use Now: None Appearance: 67 yo M in nad, AaoX3 Eyes: No Scleral Icterus, PERRLA Ears/Nose/Mouth/Throat: NL Teeth, Lips, Gums, Mucous Membranes Moist Neck: NL Appearance and Movements; NL JVP, Trachea Midline Respiratory: Symmetrical Chest Expansion and Respiratory Effort, Clear to Auscultation Cardiovascular: NL Sounds; No Murmurs; No JVD, RRR Abdominal: NL Sounds; No Tenderness; No Distention Lymphatic: No Cervical Adenopathy Extremities: No Clubbing, Cyanosis, - - +1 [employer]/CALF EDEMA B/L Skin: No Rash or Ulcers, No Nodules or Sclerosis Neurological: Alert and Oriented x 3, NL Muscle Strength and Tone Result Diagrams: 10/18/18 06:45 10/20/18 05:28 Assess/Plan/Problems-Billing Assessment: 67 yo m with no significant PMhx presents with A. flutter with RVR and CHF. - Patient Problems (1) Atrial flutter Comment: s/p FELICE cardioversion by Dr. Harris on 10/18/18 Now on coreg, lisinopril, eliquis HR in 50's with frequent PVC's and recent 6 beats of V. tach (2) Acute clinical systolic heart failure Comment: with EF 30% on FELICE, suspect it will improve once pt is back in NSR cont IV Lasix-increase the does to 60 mg BID. Pt is unsure of his baseline weight, but believes that he gained approx 30 lbs in 3 weeks. Leg edema improved and I/O's are neg , Teds ordered (3) Elevated bilirubin Comment: with predominant indirect bili. ? Gilbert syndrome Improving (4) Dyslipidemia Comment: LDL 135, cont lipitor started by cardiology (5) DVT prophylaxis Comment: eliquis Status and Disposition: inpatient
--- NOTE | 2018-10-20 12:49 | PN ---
Subjective Interval History: f/u ChF, atrial flutter Patient with good diuresis at bedside Still markedly volume overloaded No CP, dyspnea at rest Disclosed yesterday had been drinking 6+ beers a day plus liquor most days of week up until a few months ago Several asymptomatic short bursts of NSVT on telemetry, electrolytes being replaced Intermittent diatolic hypertension EKG this AM SB, LVH with repolarization abnormalities and PVC Medications Active Medications: Acetaminophen (Tylenol Tab*) 650 mg PO Q4H PRN PRN Reason: FEVER/PAIN Apixaban (Eliquis*) 5 mg PO BID [facility] Last Admin: 10/20/18 09:34 Dose: 5 mg Atorvastatin Calcium (Lipitor*) 40 mg PO 2100 [facility] Last Admin: 10/19/18 21:04 Dose: 40 mg Carvedilol (Coreg Tab*) 12.5 mg PO BID [facility] Last Admin: 10/20/18 09:35 Dose: 12.5 mg Enalapril Maleate (Vasotec Tab*) 2.5 mg PO BID [facility] Last Admin: 10/20/18 09:34 Dose: 2.5 mg Furosemide (Lasix Iv*) 40 mg IV Q12H [facility] Last Admin: 10/20/18 09:36 Dose: 40 mg Objective Vital Signs: Temp Pulse Resp BP Pulse Ox 97.2 F 62 16 126/82 98 10/20/18 07:51 10/20/18 07:51 10/20/18 07:51 10/20/18 07:51 10/20/18 07:51 Oxygen Devices in Use Now: None Appearance: nad, pleasant Neck: Trachea Midline, - - + jvd Respiratory: Symmetrical Chest Expansion and Respiratory Effort, - - decreased BS right base Cardiovascular: - - RRR, no significant murmur Abdominal: - - distended, soft Extremities: - - extensive edema 2+ throughout all legs and presacral area Neurological: Alert and Oriented x 3 Laboratory Results: 10/18/18 06:45 10/20/18 05:28 INR (Anticoag Therapy) 1.22 (0.77-1.02) H 10/17/18 10:30 APTT 146.8 seconds (26.0-36.3) H* 10/18/18 02:15 Total Bilirubin 1.10 mg/dL (0.2-1.0) H 10/20/18 05:28 Direct Bilirubin 0.50 mg/dL (0.03-0.18) H 10/17/18 16:19 Indirect Bilirubin 1.2 mg/dL (0.3-1.0) H 10/17/18 16:19 AST 21 U/L (13-39) 10/20/18 05:28 ALT 18 U/L (7-52) 10/20/18 05:28 Alkaline Phosphatase 56 U/L (34-104) 10/20/18 05:28 B-Natriuretic Peptide 1037 pg/mL (<=100) H 10/17/18 10:30 Total Protein 5.4 g/dL (6.4-8.9) L 10/20/18 05:28 Albumin 3.4 g/dL (3.2-5.2) 10/20/18 05:28 Globulin 2.0 g/dL (2-4) 10/20/18 05:28 Albumin/Globulin Ratio 1.7 (1-3) 10/20/18 05:28 Triglycerides 64 mg/dL 10/18/18 06:45 Cholesterol 178 mg/dL 10/18/18 06:45 LDL Cholesterol 135 mg/dL 10/18/18 06:45 HDL Cholesterol 30.3 mg/dL 10/18/18 06:45 TSH 3.36 mcIU/mL (0.34-5.60) 10/17/18 10:30 mg 1.9 hgba1c 6.4 10/17/18 10/17/18 10/17/18 10:30 12:48 16:19 Troponin I 0.05 H* 0.05 H* 0.07 H* 10/18/18 06:45 Troponin I 0.08 H* Diagnostic Imaging: FELICE 10/18/2018 LVEF 30% No LA/COURTNEY thrombus Moderate TR Mild aortic plaque'' EKG Data: EKG 10/19/2018: NSR, LVH with repolarization abnormalities Admission EKG: Rapid atrial flutter EKG 10/18/2018: NSR, LBBB Assessment/Plan Mr. Molina is a 67 year old man had not previously had medical followup, excessive alcohol use until recently admitted with acute systolic HF LVEF 30% in the setting of a LBBB (intermittent) and 2:1 rapid atrial flutter of uncertain duration. s/p FELICE/cardioversion 10/18/2018 remains markedly volume overloaded. - Continue IV diuresis, patient not stable for discharge - Given extra potassium 40 meq K x 1 now in addition to 20 meq already given ( ordered) - Agree with Magnesium replacement - Continue coreg 12.5 mg po bid - Increase enalapril from 2.5 mg po bid to 5 mg po bid (ordered) - Continue eliquis 5 mg po bid - continue lipitor 40 mg po daily - Continue telemetry monitoring - daily BMP and Mg - Flu shot today (ordered) - Check limited echo tomorrow (ordered) - Further recommendations pending clinical course Thank you for allowing me to participate in the cardiovascular care of this patient. Please do not hesitate to contact me with questions or concerns.
[2018-10-20] MEDS: Magnesium Oxide TAB* 400 MG PO SCH (15:13)
[2018-10-20] MEDS: Furosemide IV* 10 MG/ML 10 ML VIAL (100 MG) IV SCH (21:24)
[2018-10-20] MEDS: Atorvastatin* 40 MG TAB PO SCH (21:27)
[2018-10-21 07:05] LABS: BUN/Creatinine Ratio 29.5 (8-20); EGFR Non-African American 86.4 (>60); Magnesium 2.1 mg/dL (1.9-2.7); Potassium 3.6 mmol/L (3.5-5.0)
[2018-10-21] MEDS: Apixaban* 5 MG TAB PO SCH ×2 (08:30→20:58)
[2018-10-21] MEDS: Enalapril TAB* 5 MG PO SCH ×2 (08:30→20:58)
[2018-10-21] MEDS: Furosemide IV* 10 MG/ML 10 ML VIAL (100 MG) IV SCH (08:31)
[2018-10-21] MEDS: Magnesium Oxide TAB* 400 MG PO SCH (08:31)
[2018-10-21] MEDS: Carvedilol TAB* 6.25 MG PO SCH ×2 (08:31→20:58)
[2018-10-21] MEDS ORDERED: Potassium Chlor TAB* 20 MEQ TAB.ER PO ONE (08:50)
--- NOTE | 2018-10-21 08:53 | ECHO ---
Patient: CHRISTINA GREGORY [facility] Rec#: [id number] : 1950 Date: 10/21/2018 Age: 67y Height: 180 cm / 70.9 in Weight: 97 kg / 213.8 lbs Sex: M BSA: 2.17 Room#: 439 Admit Date#: 10/17/2018 Type: Inpatient Referring: Jose Armando Harris DO Reading: Jose Armando Harris DO Cake Press Operator: Kimmie Mays RD,RDMS Transthoracic Echocardiogram Indication: CHF BP: 132/81 HR: 55 Rhythm: Bradycardia Findings History: Aflutter, former smoker Technical Comments: The study quality is good. Left Ventricle: The left ventricular chamber size is mildly dilated. Mild concentric left ventricular hypertrophy is observed. There is global hypokinesis of the left ventricle with minor regional variation. There is severely decreased left ventricular systolic function. The estimated ejection fraction is 20-25%. Pericardium: There is no significant pericardial effusion. Venous: There is no change in the dimension of the inferior vena cava with respiration consistent with markedly increased right atrial pressure. Conclusions The left ventricular chamber size is mildly dilated. Mild concentric left ventricular hypertrophy is observed. There is global hypokinesis of the left ventricle with minor regional variation. There is severely decreased left ventricular systolic function. The estimated ejection fraction is 20-25%. Limited study. Compared to FELICE 10/17/2018, LVEF appears worse Measurements Name Value Normal Range RVIDd (AP) 2D 3.5 cm (0.9 - 2.6) IVSd (2D) 1.2 cm (0.6 - 1) LVPWd (2D) 1.2 cm (0.6 - 1) LVIDd (2D) 5.7 cm (3.6 - 5.4) LVIDs (2D) 5.2 cm - LV FS (2D) 9 % (25 - 45)
[2018-10-21] MEDS: Spironolactone TAB* 25 MG PO SCH (09:22)
--- NOTE | 2018-10-21 10:06 | PN ---
Subjective Date of Service: 10/21/18 Interval History: f/u CHF, atrial flutter Patient continues with good diuresis Remains volume overloaded Feels great No CP or dyspnea Remains edematous Limited echo this AM LVEF 20-25% TEle: NSR, no arrhythmias Medications Active Medications: Acetaminophen (Tylenol Tab*) 650 mg PO Q4H PRN PRN Reason: FEVER/PAIN Apixaban (Eliquis*) 5 mg PO BID [facility] Last Admin: 10/21/18 08:30 Dose: 5 mg Atorvastatin Calcium (Lipitor*) 40 mg PO 2100 [facility] Last Admin: 10/20/18 21:27 Dose: 40 mg Carvedilol (Coreg Tab*) 12.5 mg PO BID [facility] Last Admin: 10/21/18 08:31 Dose: 12.5 mg Enalapril Maleate (Vasotec Tab*) 5 mg PO BID [facility] Last Admin: 10/21/18 08:30 Dose: 5 mg Magnesium Oxide (Magox 400 Tab*) 400 mg PO DAILY [facility] Last Admin: 10/21/18 08:31 Dose: 400 mg Spironolactone (Aldactone Tab*) 25 mg PO DAILY [facility] Last Admin: 10/21/18 09:22 Dose: 25 mg Torsemide (Demadex*) 20 mg PO BID [facility] Objective Vital Signs: Temp Pulse Resp BP Pulse Ox 97.2 F 56 14 132/81 97 10/21/18 07:38 10/21/18 07:38 10/21/18 07:38 10/21/18 07:38 10/21/18 07:38 Oxygen Devices in Use Now: None Appearance: nad, pleasant Neck: Trachea Midline, - - uncertain jvp Respiratory: Symmetrical Chest Expansion and Respiratory Effort, Clear to Auscultation, - Cardiovascular: - - RRR, no significant murmur Abdominal: - - distended, soft Extremities: - - extensive edema 2+ throughout legs, no presacral edema today Neurological: Alert and Oriented x 3 Laboratory Results: 10/18/18 06:45 10/21/18 06:07 INR (Anticoag Therapy) 1.22 (0.77-1.02) H 10/17/18 10:30 APTT 146.8 seconds (26.0-36.3) H* 10/18/18 02:15 Total Bilirubin 1.10 mg/dL (0.2-1.0) H 10/20/18 05:28 Direct Bilirubin 0.50 mg/dL (0.03-0.18) H 10/17/18 16:19 Indirect Bilirubin 1.2 mg/dL (0.3-1.0) H 10/17/18 16:19 AST 21 U/L (13-39) 10/20/18 05:28 ALT 18 U/L (7-52) 10/20/18 05:28 Alkaline Phosphatase 56 U/L (34-104) 10/20/18 05:28 B-Natriuretic Peptide 1037 pg/mL (<=100) H 10/17/18 10:30 Total Protein 5.4 g/dL (6.4-8.9) L 10/20/18 05:28 Albumin 3.4 g/dL (3.2-5.2) 10/20/18 05:28 Globulin 2.0 g/dL (2-4) 10/20/18 05:28 Albumin/Globulin Ratio 1.7 (1-3) 10/20/18 05:28 Triglycerides 64 mg/dL 10/18/18 06:45 Cholesterol 178 mg/dL 10/18/18 06:45 LDL Cholesterol 135 mg/dL 10/18/18 06:45 HDL Cholesterol 30.3 mg/dL 10/18/18 06:45 TSH 3.36 mcIU/mL (0.34-5.60) 10/17/18 10:30 mg 2.1 10/17/18 10/17/18 10/17/18 10:30 12:48 16:19 Troponin I 0.05 H* 0.05 H* 0.07 H* 10/18/18 06:45 Troponin I 0.08 H* Diagnostic Imaging: FELICE 10/18/2018 LVEF 30% No LA/COURTNEY thrombus Moderate TR Mild aortic plaque'' Limited echo 10/21/2018 LVEF 20-25%, global LV hypokinesis with minor segmental variation EKG Data: EKG 10/19/2018: NSR, LVH with repolarization abnormalities Admission EKG: Rapid atrial flutter EKG 10/18/2018: NSR, LBBB Assessment/Plan Mr. Molina is a 67 year old man had not previously had medical followup, excessive alcohol use until recently admitted with acute systolic HF LVEF 20-25 % in the setting of a LBBB (intermittent), 2:1 rapid atrial flutter of uncertain duration and probable untreated hypertension. s/p FELICE/cardioversion and improving with medical therapy. - Continue diuresis, change to torsemide 20 mg po bid tonight - Given extra potassium 40 meq K x 1 now (ordered) - Continue coreg 12.5 mg po bid - Continue enalapril 5 mg po bid - Start spironolactone 25 mg po daily (ordered) - Continue eliquis 5 mg po bid - continue lipitor 40 mg po daily - Continue telemetry monitoring - daily BMP and Mg - check BNP tomorrow (ordered) My suspicions is the patients systolic HF is related to alcohol use, HTN and atrial flutter. He has no evidence of a type 1 acute IA. We did discuss today that I cannot exclude CAD contributing to his HF. We discussed evidence regarding revascularization (particularly cabg) in this situation. We discussed a diagnostic angiogram this admission vs. an angiogram if LVEF does not recovery with ETOH cessation, arrhythmia control and cardiomyopathy medications. He would prefer the latter which I think is very reasonable. Will arrange cardiology follow with eventual repeat LVEF evaluation and if does not recovery will pursue revascularization at that time. He has already made arrangements to establish with Dr. Reed for PCP. If otherwise stable tentative plans for discharge Monday10/22/2018. Thank you for allowing me to participate in the cardiovascular care of this patient. Please do not hesitate to contact me with questions or concerns.
--- NOTE | 2018-10-21 11:26 | PN ---
Subjective Date of Service: 10/21/18 Interval History: Pt's weight is down to 2017 lbs. LE's still swollen, but improving Objective Active Medications: Acetaminophen (Tylenol Tab*) 650 mg PO Q4H PRN PRN Reason: FEVER/PAIN Apixaban (Eliquis*) 5 mg PO BID [facility] Last Admin: 10/21/18 08:30 Dose: 5 mg Atorvastatin Calcium (Lipitor*) 40 mg PO 2100 [facility] Last Admin: 10/20/18 21:27 Dose: 40 mg Carvedilol (Coreg Tab*) 12.5 mg PO BID [facility] Last Admin: 10/21/18 08:31 Dose: 12.5 mg Enalapril Maleate (Vasotec Tab*) 5 mg PO BID [facility] Last Admin: 10/21/18 08:30 Dose: 5 mg Magnesium Oxide (Magox 400 Tab*) 400 mg PO DAILY [facility] Last Admin: 10/21/18 08:31 Dose: 400 mg Spironolactone (Aldactone Tab*) 25 mg PO DAILY [facility] Last Admin: 10/21/18 09:22 Dose: 25 mg Torsemide (Demadex*) 20 mg PO BID [facility] Vital Signs - 8 hr 10/21/18 10/21/18 10/21/18 03:26 05:39 07:38 Temperature 97.3 F 96.9 F 97.2 F Pulse Rate 52 56 56 Respiratory 16 16 14 Rate Blood Pressure 115/72 127/73 132/81 (mmHg) O2 Sat by Pulse 92 95 97 Oximetry 10/21/18 08:00 Temperature Pulse Rate Respiratory 20 Rate Blood Pressure (mmHg) O2 Sat by Pulse Oximetry Oxygen Devices in Use Now: None Appearance: 67 yo M in nAD, aAOx3 Eyes: No Scleral Icterus, PERRLA Ears/Nose/Mouth/Throat: NL Teeth, Lips, Gums, Mucous Membranes Moist Neck: NL Appearance and Movements; NL JVP, Trachea Midline Respiratory: Symmetrical Chest Expansion and Respiratory Effort, Clear to Auscultation Cardiovascular: NL Sounds; No Murmurs; No JVD, RRR Abdominal: NL Sounds; No Tenderness; No Distention Lymphatic: No Cervical Adenopathy Extremities: No Clubbing, Cyanosis, - - b/l LE's below the knee edema and some flank edema b/l -improving Skin: No Nodules or Sclerosis Neurological: Alert and Oriented x 3, NL Muscle Strength and Tone Result Diagrams: 10/18/18 06:45 10/21/18 06:07 Assess/Plan/Problems-Billing Assessment: 67 yo m with no significant PMhx presents with A. flutter with RVR and CHF. - Patient Problems (1) Atrial flutter Comment: s/p FELICE cardioversion by Dr. Harris on 10/18/18 Now on coreg, lisinopril, eliquis HR in 50's with frequent PVC's and 6 beats of V. tach As per cardiology : adding Aldactone today. (2) Acute clinical systolic heart failure Comment: with EF 30% on FELICE, suspected it will improve once pt is back in NSR, but repeat Echo today still shows EF 25% As per D/w DR. Harris will d/c Lasix IV start PO torsemide Leg edema improved and I/O's are neg , Teds cont (3) Elevated bilirubin Comment: with predominant indirect bili. ? Gilbert syndrome Improving (4) Dyslipidemia Comment: LDL 135, cont lipitor started by cardiology (5) DVT prophylaxis Comment: eliquis Status and Disposition: inpatient
[2018-10-21] MEDS: Torsemide TAB* 20 MG PO SCH (20:58)
[2018-10-21] MEDS: Atorvastatin* 40 MG TAB PO SCH (20:58)
[2018-10-22 05:52] LABS: BUN/Creatinine Ratio 23.6 (8-20); EGFR Non-African American 85.3 (>60); Magnesium 2.2 mg/dL (1.9-2.7); Potassium 3.8 mmol/L (3.5-5.0)
[2018-10-22] MEDS ORDERED: Potassium Chlor TAB* 20 MEQ TAB.ER PO ONE (08:11)
[2018-10-22] MEDS: Apixaban* 5 MG TAB PO SCH (08:50)
[2018-10-22] MEDS: Torsemide TAB* 20 MG PO SCH (08:51)
[2018-10-22] MEDS: Enalapril TAB* 5 MG PO SCH (08:51)
[2018-10-22] MEDS: Carvedilol TAB* 6.25 MG PO SCH (08:51)
[2018-10-22] MEDS: Magnesium Oxide TAB* 400 MG PO SCH (08:51)
[2018-10-22] MEDS: Spironolactone TAB* 25 MG PO SCH (08:51)
--- NOTE | 2018-10-22 08:52 | PN ---
Subjective Date of Service: 10/22/18 Interval History: f/u CHF, atrial flutter Patient continues with good diuresis Remains mildly volume overloaded Feels great No CP or dyspnea, has been ambulating TEle: NSR, no arrhythmias Medications Active Medications: Acetaminophen (Tylenol Tab*) 650 mg PO Q4H PRN PRN Reason: FEVER/PAIN Apixaban (Eliquis*) 5 mg PO BID [facility] Last Admin: 10/21/18 20:58 Dose: 5 mg Atorvastatin Calcium (Lipitor*) 40 mg PO 2100 [facility] Last Admin: 10/21/18 20:58 Dose: 40 mg Carvedilol (Coreg Tab*) 12.5 mg PO BID [facility] Last Admin: 10/21/18 20:58 Dose: 12.5 mg Enalapril Maleate (Vasotec Tab*) 5 mg PO BID [facility] Last Admin: 10/21/18 20:58 Dose: 5 mg Magnesium Oxide (Magox 400 Tab*) 400 mg PO DAILY [facility] Last Admin: 10/21/18 08:31 Dose: 400 mg Spironolactone (Aldactone Tab*) 25 mg PO DAILY [facility] Last Admin: 10/21/18 09:22 Dose: 25 mg Torsemide (Demadex*) 20 mg PO BID [facility] Last Admin: 10/21/18 20:58 Dose: 20 mg Objective Vital Signs: Temp Pulse Resp BP Pulse Ox 98.0 F 53 16 123/75 98 10/22/18 07:51 10/22/18 07:51 10/22/18 07:51 10/22/18 07:51 10/22/18 07:51 Oxygen Devices in Use Now: None Appearance: nad, pleasant Neck: Trachea Midline, - - uncertain jvp Respiratory: Symmetrical Chest Expansion and Respiratory Effort, Clear to Auscultation Cardiovascular: RRR, - - RRR, no significant murmur Abdominal: - - distended, soft Extremities: - - edema 1-2 + of lower legs only (marked improvement) Neurological: Alert and Oriented x 3 Laboratory Results: 10/18/18 06:45 10/22/18 05:24 INR (Anticoag Therapy) 1.22 (0.77-1.02) H 10/17/18 10:30 APTT 146.8 seconds (26.0-36.3) H* 10/18/18 02:15 Total Bilirubin 1.10 mg/dL (0.2-1.0) H 10/20/18 05:28 Direct Bilirubin 0.50 mg/dL (0.03-0.18) H 10/17/18 16:19 Indirect Bilirubin 1.2 mg/dL (0.3-1.0) H 10/17/18 16:19 AST 21 U/L (13-39) 10/20/18 05:28 ALT 18 U/L (7-52) 10/20/18 05:28 Alkaline Phosphatase 56 U/L (34-104) 10/20/18 05:28 B-Natriuretic Peptide 617 pg/mL (<=100) H 10/22/18 05:24 Total Protein 5.4 g/dL (6.4-8.9) L 10/20/18 05:28 Albumin 3.4 g/dL (3.2-5.2) 10/20/18 05:28 Globulin 2.0 g/dL (2-4) 10/20/18 05:28 Albumin/Globulin Ratio 1.7 (1-3) 10/20/18 05:28 Triglycerides 64 mg/dL 10/18/18 06:45 Cholesterol 178 mg/dL 10/18/18 06:45 LDL Cholesterol 135 mg/dL 10/18/18 06:45 HDL Cholesterol 30.3 mg/dL 10/18/18 06:45 TSH 3.36 mcIU/mL (0.34-5.60) 10/17/18 10:30 10/17/18 10/17/18 10/17/18 10:30 12:48 16:19 Troponin I 0.05 H* 0.05 H* 0.07 H* 10/18/18 06:45 Troponin I 0.08 H* Diagnostic Imaging: FELICE 10/18/2018 LVEF 30% No LA/COURTNEY thrombus Moderate TR Mild aortic plaque'' Limited echo 10/21/2018 LVEF 20-25%, global LV hypokinesis with minor segmental variation EKG Data: EKG 10/19/2018: NSR, LVH with repolarization abnormalities Admission EKG: Rapid atrial flutter EKG 10/18/2018: NSR, LBBB Assessment/Plan Mr. Molina is a 67 year old man had not previously had medical followup, excessive alcohol use until recently admitted with new onset acute systolic HF LVEF 20-25% in the setting of a LBBB (intermittent), 2:1 rapid atrial flutter of uncertain duration and probable untreated hypertension. s/p FELICE/ cardioversion 10/18/2018 and improving with medical therapy. - Given extra potassium 40 meq K x 1 now (ordered) then d/c - Can decrease torsemide to 20 mg once a day - Continue coreg 12.5 mg po bid - Continue enalapril 5 mg po bid - Continue spironolactone 25 mg po daily - Continue eliquis 5 mg po bid - continue lipitor 40 mg po daily - Needs a BMP in 1 week Patient stable for discharge from a cardiac standpoint. My suspicions is the patients systolic HF is related to alcohol use, HTN and atrial flutter. He has no evidence of a type 1 acute [place]. We did discuss today that I cannot exclude CAD contributing to his HF. We discussed evidence regarding revascularization (particularly cabg) in this situation. We discussed a diagnostic angiogram this admission vs. an angiogram if LVEF does not show any recovery by a month with ETOH cessation, arrhythmia control and cardiomyopathy medications. He would prefer the latter which I think is very reasonable. Will arrange cardiology follow up with repeat echo in 1 month and if does not show any recovery will pursue revascularization at that time. He has already made arrangements to establish with Dr. Reed for PCP. Thank you for allowing me to participate in the cardiovascular care of this patient. Please do not hesitate to contact me with questions or concerns.
[2018-10-22 11:54] VITALS: BP 119/75
--- NOTE | 2018-10-22 20:30 | DS ---
CC: Dr. Jose Armando Harris; Dr. Reed; Dr. Campos * DISCHARGE SUMMARY: DATE OF ADMISSION: 10/17/18 DATE OF DISCHARGE: 10/22/18 PRIMARY CARE PROVIDER: Dr. Reed. DISCHARGE DIAGNOSES: 1. Atrial flutter with rapid ventricular response status post cardioversion performed by Dr. Harris on 10/18/18 that was successful. 2. Acute systolic congestive heart failure in the patient with newly diagnosed cardiomyopathy and EF of 30%. 3. Dyslipidemia. MEDICATIONS AT DISCHARGE: Include: 1. Apixaban 5 mg b.i.d. 2. Atorvastatin 40 mg daily. 3. Coreg 12.5 mg b.i.d. 4. Vasotec 5 mg b.i.d. 5. Aldactone 25 mg daily. 6. Demadex 20 mg daily. The patient is recommended to have a basic metabolic panel drawn in a week with reports to be sent to Dr. Harris and Dr. Reed. For followup, the patient is scheduled with Dr. Reed at the beginning of November 2018 and he is asked to keep this appointment. The patient is asked to call Dr. Harris's office to schedule a followup with the nurse practitioner in Dr. Harris's office for the next week. LABORATORY DATA AND STUDIES PERFORMED: During the hospital stay included: On 10/22/18, sodium of 138, potassium 3.8, chloride 101, carbon dioxide 33, BUN 21, creatinine 0.89. Liver function tests were last obtained on 10/20/18 that showed bilirubin of 1.1 , AST of 21, ALT of 18, alkaline phosphatase of 56. Brain natriuretic peptide was obtained on 10/22/18 and was 617. At admission, brain natriuretic peptide was 1037. The patient's TSH was noted to be 3.3 at admission. The patient's cholesterol profile showed total triglycerides 64, cholesterol total of 178, LDL of 135 and HDL of 30. CBC last obtained on 10/18/18, white blood cell count of 8.5, hemoglobin 16.2, hematocrit of 49, and platelets of 197,000. Transthoracic echocardiogram last obtained on 10/20/18 showed the left ventricular chamber size is mildly dilated. Mild concentric left ventricular hypertrophy is observed. There is global hypokinesis of the left ventricle with minor regional variation. There is severely decreased left ventricular systolic function. Diastolic ejection fraction is 20% to 25%. Liver ultrasound obtained on 10/17/18, impression: "Small gallbladder wall polyps. Small slightly complex hepatic cyst. Small amount of ascites. Bilateral pleural effusions." Portable chest x-ray obtained at admission, impression: "The constellation of findings favors mild pulmonary vascular congestion and associated moderate right pleural effusion with bibasilar atelectasis. A right basilar pneumonia is not excluded. Correlate with clinical assessment." CONSULTATIONS DURING THE HOSPITAL STAY: Included Dr. Campos and Dr. Harris from Cardiology. PROCEDURES PERFORMED: Included synchronized cardioversion of atrial flutter performed by Dr. Harris on 10/18/18, successfully. HOSPITALIZATION COURSE: Molina Molina is a 67-year-old male with no significant past medical history who presented to the hospital complaining of shortness of breath. The patient was noted to have increased weight of approximately 40 pounds in the past several weeks. He also was noted to be in atrial flutter with rapid ventricular response. He was placed on Cardizem drip and had synchronized cardioversion performed by Dr. aHrris on 10/18/18. Please also note that his initial EKG showed left bundle branch block which appeared to have resolved after cardioversion and normal sinus rhythm. The patient no longer had left bundle branch block. Post cardioversion, the patient's echocardiogram showed EF of 30%. The patient also stated that he did drink a significant amount of alcohol up to a month prior to his presentation, but when he started feeling unwell, he stopped it. The patient's troponin was mildly elevated at 0.08 which was thought to be due to demand ischemia. After the patient's cardioversion, the patient continued to be diuresed with Lasix intravenously with good results. His weight decreased from 225 pounds to 200 pounds by the time of discharge. A repeat echocardiogram obtained the day prior to discharge showed still EF of 20% to 25% . At this time, the endodontic assistant's recommendation was for the patient to be discharged home and follow up with Cardiology in a week. Basic metabolic panel was also going to be obtained. The patient was started on Aldactone, beta- napoleon and HILTON inhibitor as well as Eliquis for anticoagulation. Throughout the patient's hospital stay, telemetry monitoring showed PVCs and 1 bout of 6 beats of V-tach throughout, which the patient was asymptomatic. The patient is to follow up with Dr. Reed and his primary care provider, Dr. Harris as above mentioned. PHYSICAL EXAM AT TIME OF DISCHARGE: Blood pressure of 123/75, heart rate of 53 and regular, respiratory rate 16, oxygen saturation 98% on room air, temperature of 98.0. General: The patient is a pleasant 67-year-old male who is in no acute distress. Alert, awake and oriented x3. HEENT: Head atraumatic , normocephalic. Eyes: Pupils equal, reactive to light and accommodation. Oropharynx is clear. Mucosa moist. Neck: Supple. No JVD. No bruits bilaterally. Cardiovascular: Regular rate and rhythm, no murmur. Respiratory: Clear to auscultation bilaterally. Abdomen: Soft, nontender. Bowel sounds are present in all 4 quadrants. Extremities: There is trace to +1 bilateral pedal edema. Pulses +2 bilaterally. There is no clubbing or cyanosis. Neuro Evaluation: Speech is clear. Cranial nerves II through XII are grossly intact. Motor strength is 5/5 bilaterally. Please note that this is a short summary of the patient's hospital stay. Please refer to further medical records for details. TIME SPENT: Approximately 45 minutes were spent on the patient's discharge. [id number]/[facility] #: [id number] MTDNicolette
--- NOTE | 2018-10-24 20:17 | PROCNOTE ---
Cardiology Procedure Note Late entry, DOS 10/18/2018 FELICE/CV Risks, benefits alternatives discussed and patient wished to proceed Patient had received 5 mg of eliquis prior to procedure Conscious sedation provided (see FELICE report) FELICE no LA/COURTNEY thrombus Patient had successful cardioversion from atrial flutter to normal sinus rhythm with 120J external electrical sync x 1
== END 2018-10-22 13:13 | disposition home or self-care (01) | DRG 308 ==
LOC: ED 09:54 → MEDTELE 13:36
PROVIDERS: ADMIT Student in an Organized Health Care Education/Training Program; ATTEND Internal Medicine
PROC: B24BZZ4 Ultrasonography of Heart with Aorta, Transesophageal (ICD-10-PCS; 2018-10-18)
PROC: 5A2204Z Restoration of Cardiac Rhythm, Single (ICD-10-PCS; principal; 2018-10-18 09:30)
DX: I48.92 Unspecified atrial flutter (principal); I50.21 Acute systolic (congestive) heart failure; E87.2 Acidosis; I24.8 Other forms of acute ischemic heart disease; J98.11 Atelectasis; R17 Unspecified jaundice; I42.9 Cardiomyopathy, unspecified; I48.91 Unspecified atrial fibrillation; E78.5 Hyperlipidemia, unspecified; R74.8 Abnormal levels of other serum enzymes; I49.3 Ventricular premature depolarization; I44.7 Left bundle-branch block, unspecified; F10.21 Alcohol dependence, in remission; Z91.018 Allergy to other foods; Z80.49 Family history of malignant neoplasm of other genital organs; Z87.891 Personal history of nicotine dependence; Z82.49 Family history of ischemic heart disease and other diseases of the circulatory system
CPT/HCPCS: 36415; 71045; 76705; 80048; 80053; 80061; 82247; 82248; 82977; 83036; 83605; 83735; 83880; 84443; 84484; 85025; 85610; 85730; 90686; 93005; 93308; 93312; 93325; 99156; 99157; 99285; A9270-GY; C8925; J1644; J1940; J2250; J2310; J3010; J3475

== ENCOUNTER → 2019-01-25 07:49 | Day surgery (SDC) | payer MEDICARE ==
[~2019-01-25 07:49] MED LIST: Heparin 2 UNITS/ML IVPREMIX* 2,000 UNIT/1,000 ML BAG IV ONE; Heparin(*) 1000 UNIT/ML 10 ML VIAL CATH LAB IV ONE; Iohexol 350 (CONTRAST) 200 ML MDV IV ONE; Lidocaine 1% INJ* 10 MG/ML 30 ML SDV ONE; Midazolam* 1 MG/ML 5 ML VIAL (5 MG) ONE; NS 0.9% 1000 ML** 1,000 ML IV SCH; VERAPAMIL 2.5 MG/ML 2 ML VIAL ** 5 mg/2 ml ONE; fentaNYL* 50 MCG/ML 2 ML VIAL (100 MCG VIAL) ONE; nitroGLYCERIN DRIP* 25,000 MCG/250 ML BTL ONE
[2019-01-25 11:34] VITALS: BP 108/65
--- NOTE | 2019-01-27 21:16 | CATH ---
CC: Dr. Reed; Dr. Harris; Dr. Meehan * CATH REPORT: DATE OF PROCEDURE: 01/25/19 - [facility] CATH PRIMARY CARE PHYSICIAN: Dr. Reed. SAFETY SITTER: Dr. Harris. OR PHYSICIAN: Dr. Meehan. PROCEDURES: 1. Right radial artery access. 2. Bilateral selective coronary cineangiography. 3. Left heart catheterization. 4. Left ventriculography. HISTORY: A 68-year-old male with 3-vessel disease by stress imaging with no LAD distribution viability on reinjection thallium imaging, but significant ischemic burden in the RCA and circumflex distributions. He initially presented with LV systolic dysfunction in the setting of rapid atrial flutter, is persisting with depressed LVEF. Subsequently, he has been converted to sinus rhythm, and has limited alcohol use. He was referred for coronary angiography for possible revascularization. PROCEDURE ACCESS: Right radial artery sheath 6F slender. MEDICATIONS: 1. Subcu lidocaine. 2. IV Versed. 3. IV fentanyl. 4. Heparin 3000 units. 5. Nitroglycerin 300 mcg. 6. Verapamil 3 mg IA. DIAGNOSTIC CATHETERS: 5F TIG4, 5F pigtail. HEMODYNAMICS: Initial AO 85/56. LV 106/14, no aortic valve gradient on pullback. ANGIOGRAPHY: RCA: The RCA is large, dominant, with moderate calcification and proximal luminal irregularity. Before a small RV and free wall branch, there is an intermediate stenosis of approximately 50%. The PDA is large, has ostial tubular 80% stenosis. The RCA continuation consists of 2 smaller posterolaterals. PDA has a tandem second lesion after the ostium, at 70 %. Left main: The left main has gradual distal taper; angiographically by diameter versus the ostium, the left main has approximately a 30% stenosis distally. LAD: The LAD is moderate, severely and diffusely diseased with proximal irregularity, tubular 75% to 80% stenosis before the first septal pumping supervisor followed by reconstitution, a moderate diagonal branch after which the LAD is subtotally occluded with an 80% to 90% stenosis and distal slow flow with probably competitive filling. The distal LAD supplies a small caliber, but large distribution diagonal that reaches the lateral apex. Circumflex: The circumflex is not dominant, is moderate with a very large first marginal after which the circumflex has fairly diffuse severe disease for lengthy segment in the midportion including a near total or total occlusion which is long, with a bridging transatrial collateral. Beyond reconstitution, there is a moderate posterolateral branch. LV Gram: He has global hypokinesis with preserved proximal anterolateral contraction, with hypokinesis of the distal anterolateral wall, and akinesis of the apex. The inferior wall is mildly hypokinetic. Estimated LVEF 35% to 40%. CONCLUSION: 1. Three-vessel disease by thallium imaging, no viability in the distal LAD distribution; however, he has a proximal LAD stenosis before the first septal and the proximal anterolateral wall does contract. Options are PCI revascularization versus bypass grafting, which will be discussed with the patient. 2. LV systolic dysfunction, likely multifactorial, with improvement since discontinuation of alcohol and conversion to sinus rhythm. 3. Successful right radial artery access. [id number]/[facility] #: [id number] NICHOLAS
== END | disposition home or self-care (01) ==
LOC: CHICATH 07:49
PROVIDERS: ATTEND Internal Medicine Cardiovascular Disease
DX: I25.5 Ischemic cardiomyopathy (principal); I25.10 Atherosclerotic heart disease of native coronary artery without angina pectoris; I48.92 Unspecified atrial flutter; Z79.01 Long term (current) use of anticoagulants; I50.22 Chronic systolic (congestive) heart failure; I11.0 Hypertensive heart disease with heart failure; I44.7 Left bundle-branch block, unspecified; I50.20 Unspecified systolic (congestive) heart failure; E78.5 Hyperlipidemia, unspecified; I07.1 Rheumatic tricuspid insufficiency; Z87.891 Personal history of nicotine dependence; I48.3 Typical atrial flutter; F10.11 Alcohol abuse, in remission
CPT/HCPCS: 93458; 99156; 99157; J1644; J2250; J3010